=== PATIENT | female | born 1960 | race Caucasian/White ===

== ENCOUNTER 2018-03-13 10:49 | Emergency (ER) | payer BC ==
[2018-03-13] MEDS ORDERED: diphenhydrAMINE 50 MG/ML VIAL ONE (11:36)
[2018-03-13 12:16] LABS: #Basophils 0.2 thou/uL (0.0-0.2); #Eosinphils 1.1 thou/uL (0.0-0.7); #Lymphocytes 2.7 thou/uL (1.20-3.40); #Monocytes 0.6 thou/uL (0.11-0.59); #Neutrophils 4.4 thou/uL (1.40-6.50); %Basophils 1.7 % (0.0-1.0); %Eosinophils 12.5 % (0.0-10.0); %Lymphocytes 29.8 % (21.0-51.0); %Monocytes 6.8 % (0.0-10.0); %Neutrophils 49.3 % (42.0-75.0); Mean Corpuscular HGB CONC 31.5 g/dL (32.0-36.0); Mean Corpuscular Hemoglobin 28.5 pg (27.0-31.0); Mean Corpuscular Volume 90.6 fL (78.0-98.0); Mean Platelet Volume 6.1 fL (7.4-10.4); Platelet Count 412 thou/uL (130-400); RBC Distribution Width 12.3 % (11.5-14.5); Red Blood Cell (RBC) Count 4.55 mill/uL (4.20-5.40)
[2018-03-13] MEDS ORDERED: diphenhydrAMINE 25 MG CAP ONE (12:17)
[2018-03-13] MEDS ORDERED: predniSONE 20 MG TAB ONE (12:17)
--- NOTE | 2018-03-13 12:21 | RAD ---
TWO VIEW CHEST: Comparison: None. History: Cough, chest pain. FINDINGS: There is evidence of prior sternotomy. There is no lobar consolidation, effusion or pneumothorax. Par tially imaged spinal hardware is seen at the lumbar region. IMPRESSION: No focal consolidation. POS: [id number]
[2018-03-13] MEDS ORDERED: Ondansetron ODT 4 MG TAB ONE (12:24)
[2018-03-13 12:33] LABS: ALT (SGPT) 15 U/L (8-55); AST (SGOT) 16 U/L (5-34); Albumin 3.8 g/dL (3.5-5.0); Alkaline Phosphatase 72 U/L (40-150); Anion Gap 17 mmol/L (10-20); BUN (Urea Nitrogen) 17 mg/dL (9.8-20.1); Bilirubin, Total 0.5 mg/dL (0.2-1.2); Calc. Creatinine Clearance 0 mL/min (70-130); Calcium 9.2 mg/dL (7.8-10.44); Carbon Dioxide 23 mmol/L (22-29); Chloride 108 mmol/L (98-107); Estimated GFR-MDRD 42; Globulin 2.8 g/dL (2.4-3.5); Glucose 90 mg/dL (70-105); Potassium 3.9 mmol/L (3.5-5.1); Protein, Total 6.6 g/dL (6.0-8.3); Sodium 144 mmol/L (136-145)
== END 2018-03-13 12:46 | disposition home or self-care (01) ==
LOC: SCSER 10:49
DX: J06.9 Acute upper respiratory infection, unspecified (principal); J45.901 Unspecified asthma with (acute) exacerbation; E11.9 Type 2 diabetes mellitus without complications
CPT/HCPCS: 71046; 80053; 83880; 84484; 85025; 93005; 94640; J1200; J2920; J7506; J7620; Q0162